=== PATIENT | female | born 1960 | race Caucasian/White ===

== ENCOUNTER 2024-03-17 06:36 | Day surgery (SDC) | payer MEDICARE, OTHER ==
[~2024-03-17] VITALS: Ht 149.9 cm; Wt 46.6 kg
[~2024-03-17 06:36] MED LIST: ASPI81CH PO; Antivert12.5 MG PO; Antivert25 MG PO; Ativan1 MG PO; Flonase 0.05% N16 GM; HYDACE25S PR; MECL25 PO; METPRE4DP PO; MULVITMIND PO; STOMUL PO
[2024-03-17] MEDS ORDERED: TOCO1000 (07:00)
[2024-03-17] MEDS ORDERED: propofoL 50 ML IV ONE (07:37)
[2024-03-17] MEDS ORDERED: Lactated Ringer's 1,000 ML IV ONE ×2 (07:37→07:38)
--- NOTE | 2024-03-17 07:38 | NUR ---
03/17/24 0738 Gabriel Marie CALL LIGHT WITHIN REACH.
[2024-03-17 09:50] VITALS: BP 124/53
== END 2024-03-17 09:00 | disposition home or self-care (01) ==
LOC: ORSCSDS 06:36
PROVIDERS: Surgery
PROC: 0DBM8ZX Excision of Descending Colon, Via Natural or Artificial Opening Endoscopic, Diagnostic (ICD-10-PCS; principal; 2024-03-17 08:00)
PROC: 0DBN8ZX Excision of Sigmoid Colon, Via Natural or Artificial Opening Endoscopic, Diagnostic (ICD-10-PCS; principal; 2024-03-17 08:00)
PROC: 0DBL8ZX Excision of Transverse Colon, Via Natural or Artificial Opening Endoscopic, Diagnostic (ICD-10-PCS; principal; 2024-03-17 08:00)
PROC: 0DBP8ZX Excision of Rectum, Via Natural or Artificial Opening Endoscopic, Diagnostic (ICD-10-PCS; principal; 2024-03-17 08:00)
DX: Z12.11 Encounter for screening for malignant neoplasm of colon (principal); Z86.0100 Personal history of colon polyps, unspecified; K63.5 Polyp of colon; K62.1 Rectal polyp; K57.30 Diverticulosis of large intestine without perforation or abscess without bleeding; K64.8 Other hemorrhoids; K64.4 Residual hemorrhoidal skin tags; Z87.891 Personal history of nicotine dependence
CPT/HCPCS: 88305; J2704; J7120

== ENCOUNTER → 2025-03-27 | Outpatient (CLI) | payer MEDICARE, OTHER ==
[~2025-03-27] MED LIST changes: +TOCO1000
== END ==
LOC: LAB 12:03 → LAB SHORT 12:03
DX: N39.0 Urinary tract infection, site not specified (principal)
CPT/HCPCS: 87077; 87086; 87186